=== PATIENT | female | born 2000 | race Caucasian/White ===

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

== ENCOUNTER 2020-02-25 14:27 | Emergency (ER) | payer OTHER, BC ==
[2020-02-25 14:48] VITALS: BP 143/91; PULSE 82; RESP 16; TEMP 98.6
--- NOTE | 2020-02-25 15:14 | ED ---
Lower Extremity Injury HPI - General Chief Complaint: Extremity Injury, Lower Stated Complaint: Knee Injury Time Seen by Provider: 02/25/20 14:45 Source: patient Mode of arrival: ambulatory Limitations: no limitations - History of Present Illness Initial Comments: Patient is a 19-year-old female presenting to the emergency department with a complaint of right knee pain. Patient reports about 2 months ago she slipped on grease while she was at work and her right knee made direct contact with the floor. Patient states ever since then she continues to have pain along the anterior aspect of the right knee. Patient reports there is some pain with full flexion. States the pain is also exacerbated with direct palpation to the knee. She does report a tingling sensation but on top of the knee without any radiation. States initially was swollen and ecchymotic but that has resolved since. - Related Data Home Medications Medication Instructions Recorded Confirmed No Known Home Medications 02/25/20 02/25/20 Allergies Allergy/AdvReac Type Severity Reaction Status Date / Time No Known Allergies Allergy Verified 02/25/20 14:46 Review of Systems ROS Statement: Those systems with pertinent positive or pertinent negative responses have been documented in the HPI. ROS Other: All systems not noted in ROS Statement are negative. Past Medical History Past Medical History: No Reported History History of Any Multi-Drug Resistant Organisms: None Reported Past Surgical History: No Surgical Hx Reported Past Psychological History: No Psychological Hx Reported Smoking Status: Vaper Past Alcohol Use History: Occasional Past Drug Use History: Marijuana General Exam Limitations: no limitations General appearance: alert, in no apparent distress, obese Head exam: Present: atraumatic, normocephalic, normal inspection Eye exam: Present: normal appearance, PERRL, EOMI Pupils: Present: normal accommodation ENT exam: Present: normal exam, normal oropharynx, mucous membranes moist, TM's normal bilaterally, normal external ear exam Neck exam: Present: normal inspection, full ROM. Absent: tenderness Respiratory exam: Present: normal lung sounds bilaterally. Absent: respiratory distress, wheezes, rales Cardiovascular Exam: Present: regular rate, normal rhythm, normal heart sounds Extremities exam: Present: normal inspection, full ROM, tenderness (Tenderness to palpation on the anterior aspect of the right knee. Negative Rosa negative anterior drawer.), normal capillary refill, other (+2 dorsalis pedis and posterior tibials bilateral.). Absent: pedal edema, joint swelling, calf tenderness Back exam: Present: normal inspection, full ROM. Absent: tenderness, CVA tenderness (R), CVA tenderness (L) Neurological exam: Present: alert, oriented X3, normal gait Psychiatric exam: Present: normal affect, normal mood Skin exam: Present: warm, dry, intact, normal color Course Vital Signs 02/25/20 14:43 Temperature 98.6 F Pulse Rate 82 Respiratory 16 Rate Blood Pressure 143/91 O2 Sat by Pulse 100 Oximetry Medical Decision Making - Medical Decision Making Patient is a 19-year-old female presenting to the emergency department with chief complaint of right knee pain. On physical examination, patient has negative anterior drawer and negative Rosa. There is some tenderness directly over the anterior aspect of the knee. She is neurovascularly intact in the right lower side. X-ray shows no acute pathologies. Advised the patient to alternate between Tylenol and Motrin for pain control. She was also advised to apply ice compresses for about 10-15 minutes every 3 hours. Patient was also advised to follow-up with pals specialist. Strict return parameters were thoroughly discussed with patient was understanding and agreeable. Case discussed with physician. Disposition Clinical Impression: Right knee pain, Injury of right knee Disposition: HOME SELF-CARE Condition: Stable Instructions (If sedation given, give patient instructions): Knee Pain (ED) Additional Instructions: Follow-up with pals specialist. Apply ice compresses and alternate between Tylenol and Motrin for pain control. Return to emergency department if symptoms worsen. Is patient prescribed a controlled substance at d/c from ED?: No Referrals: Justin Cornell MD [Primary Care Provider] - 1-2 days Agustín Killian MD [STAFF PHYSICIAN] - 1-2 days Time of Disposition: 15:28
--- NOTE | 2020-02-25 15:16 | XR ---
EXAMINATION TYPE: XR knee complete RT DATE OF EXAM: 02/25/2020 CLINICAL HISTORY: Pain since fall in 21.5 months ago. TECHNIQUE: Three views of the right knee are obtained. COMPARISON: None. FINDINGS: There is no acute fracture/dislocation evident in the right knee. The tri-compartment riana nt spaces appear within normal limits. Growth plates are closing/closed. The overlying soft tissue ap pears unremarkable. IMPRESSION: There is no acute fracture or dislocation in the right knee.
== END 2020-02-25 15:45 | disposition home or self-care (01) ==
LOC: EC 14:27
DX: S89.91XA Unspecified injury of right lower leg, initial encounter (principal); F17.290 Nicotine dependence, other tobacco product, uncomplicated; W01.0XXA Fall on same level from slipping, tripping and stumbling without subsequent striking against object, initial encounter; Y99.0 Civilian activity done for income or pay; Y92.69 Other specified industrial and construction area as the place of occurrence of the external cause
CPT/HCPCS: 99283